=== PATIENT | female | born 1990 ===

== ENCOUNTER → 2019-01-26 | Emergency (ER) | payer OTHER ==
[~2019-01-26] VITALS: Ht 162.6 cm; Wt 78.0 kg
[~2019-01-26] MED LIST: AMBIEN10 MG PO; ATIVAN0.5 M1 PO
== END | disposition designated cancer center or children's hospital (05) ==
LOC: ER 10:16
DX: T42.4X2A Poisoning by benzodiazepines, intentional self-harm, initial encounter (principal); R42 Dizziness and giddiness; Y92.89 Other specified places as the place of occurrence of the external cause